=== PATIENT | female | born 1990 | race Two or more races ===

== ENCOUNTER 2024-05-11 13:42 | Emergency (ER) | payer OTHER ==
[~2024-05-11] VITALS: Ht 160 cm; Wt 56.2 kg
[2024-05-11] MEDS ORDERED: FAMOTIDINE/PF 20 MG/2 ML VIAL IV PUSH ONE (14:15)
[2024-05-11] MEDS ORDERED: ONDANSETRON HCL 2 MG/ML VIAL IV ONE (14:15)
[2024-05-11] MEDS ORDERED: RINGERS SOLUTION,LACTATED 1,000 ML IV ONE (14:15)
[2024-05-11 15:02] LABS: HEMATOCRIT 31.7 % (36.0-45.00); HEMOGLOBIN 11.3 g/dL (12.0-15.00); MEAN CELL VOLUME 78.7 fL (80.00-100.00); MEAN CORPUSCULAR HEMOGLOBIN 28.1 pg (27.00-32.0); MEAN CORPUSCULAR HGB CONC 35.7 g/dl (32.0-36.0); PLATELET COUNT 231 K/uL (150-450); RED BLOOD COUNT 4.02 M/uL (4.00-6.00); RED CELL DISTRIBUTION WIDTH 13.8 % (11.5-14.5)
[2024-05-11 15:50] LABS: CREATININE SERUM 0.38 mg/dL (0.55-1.02); GFR 193.86; POTASSIUM 3.97 mEq/L (3.5-5.1)
== END 2024-05-11 21:11 | disposition home or self-care (01) ==
LOC: ER 13:45
PROVIDERS: General Practice
DX: O21.8 Other vomiting complicating pregnancy (principal); Z3A.13 13 weeks gestation of pregnancy

== ENCOUNTER 2024-07-04 13:26 | Outpatient (CLI) | payer OTHER | END 2024-07-04 13:30 | disposition home or self-care (01) | LOC: PRENATAL 13:26 | PROVIDERS: ATTEND Obstetrics & Gynecology Maternal & Fetal Medicine | DX: O44.00 Complete placenta previa NOS or without hemorrhage, unspecified trimester (principal); O34.219 Maternal care for unspecified type scar from previous cesarean delivery; O09.529 Supervision of elderly multigravida, unspecified trimester; O36.4XX0 Maternal care for intrauterine death, not applicable or unspecified; Z14.8 Genetic carrier of other disease; Z3A.19 19 weeks gestation of pregnancy ==

== ENCOUNTER 2024-08-29 13:20 | Outpatient (CLI) | payer OTHER | END 2024-08-29 13:21 | disposition home or self-care (01) | LOC: PRENATAL 13:20 | PROVIDERS: ATTEND Obstetrics & Gynecology Maternal & Fetal Medicine | DX: O26.849 Uterine size-date discrepancy, unspecified trimester (principal); O36.8199 Decreased fetal movements, unspecified trimester, other fetus; O34.219 Maternal care for unspecified type scar from previous cesarean delivery; O09.529 Supervision of elderly multigravida, unspecified trimester; O36.4XX0 Maternal care for intrauterine death, not applicable or unspecified; Z14.8 Genetic carrier of other disease; Z3A.28 28 weeks gestation of pregnancy ==

== ENCOUNTER 2024-10-04 01:58 | Emergency (ER) | payer OTHER ==
[~2024-10-04] VITALS: Ht 160 cm; Wt 67.1 kg
[2024-10-04] MEDS ORDERED: PRENATAL TABLE1 EAC1 PO (03:49)
[2024-10-04] MEDS ORDERED: CHILDREN'S ASPI81 MG PO (03:49)
== END 2024-10-04 03:27 | disposition still patient (30) ==
LOC: ER 01:58
DX: O26.893 Other specified pregnancy related conditions, third trimester (principal); Z3A.33 33 weeks gestation of pregnancy; R10.9 Unspecified abdominal pain

== ENCOUNTER 2024-10-04 03:39 | Outpatient (CLI) | payer OTHER ==
[~2024-10-04] VITALS: Ht 160 cm; Wt 67.1 kg
[2024-10-04 03:13] VITALS: BP 103/66; O2SAT 99
[2024-10-04] MEDS ORDERED: CHILDREN'S ASPI81 MG PO (03:49)
[2024-10-04] MEDS ORDERED: PRENATAL TABLE1 EAC1 PO (03:49)
[2024-10-04 06:22] VITALS: BP 95/59; O2SAT 99
[2024-10-04 12:00] VITALS: BP 103/60; O2SAT 99
[2024-10-04 15:45] VITALS: BP 108/71
[2024-10-04 20:15] VITALS: BP 107/69
[2024-10-04 23:38] VITALS: BP 96/56
[2024-10-05 03:40] VITALS: BP 94/63
[2024-10-05 07:22] VITALS: BP 97/60
[2024-10-05 11:24] VITALS: BP 106/68; O2SAT 100
[2024-10-05 13:39] VITALS: BP 106/68
== END 2024-10-05 13:39 | disposition home or self-care (01) ==
LOC: OBS/DEL 03:39
PROVIDERS: ATTEND Obstetrics & Gynecology
DX: O36.8130 Decreased fetal movements, third trimester, not applicable or unspecified (principal); O26.849 Uterine size-date discrepancy, unspecified trimester; Z3A.34 34 weeks gestation of pregnancy

== ENCOUNTER 2024-10-17 14:07 | Outpatient (CLI) | payer OTHER ==
[~2024-10-17 14:07] MED LIST: CHILDREN'S ASPI81 MG PO; PRENATAL TABLE1 EAC1 PO
== END 2024-10-17 14:08 | disposition home or self-care (01) ==
LOC: PRENATAL 14:07
PROVIDERS: ATTEND Obstetrics & Gynecology Maternal & Fetal Medicine
DX: O26.849 Uterine size-date discrepancy, unspecified trimester (principal); O36.5990 Maternal care for other known or suspected poor fetal growth, unspecified trimester, not applicable or unspecified; Z3A.35 35 weeks gestation of pregnancy

== ENCOUNTER 2024-11-06 08:08 | Outpatient (CLI) | payer OTHER | END 2024-11-06 08:09 | disposition home or self-care (01) | LOC: PRENATAL 08:08 | PROVIDERS: ATTEND Obstetrics & Gynecology Maternal & Fetal Medicine | DX: O26.849 Uterine size-date discrepancy, unspecified trimester (principal); O36.8130 Decreased fetal movements, third trimester, not applicable or unspecified; O36.5990 Maternal care for other known or suspected poor fetal growth, unspecified trimester, not applicable or unspecified; Z3A.38 38 weeks gestation of pregnancy ==